=== PATIENT | male | born 1960 | race Caucasian/White ===

== ENCOUNTER 2021-01-29 11:44 | Emergency (ER) | payer SELFPAY ==
--- NOTE | 2021-01-29 11:59 | NUR ---
PT ADVISED THAT WE DO NOT GIVEN REFERRALS FOR HOSPICE. LEFT WITHOUT BEING SEEN.
== END 2021-01-29 11:59 | disposition left against medical advice (07) ==
LOC: MED 11:44
DX: Z53.21 Procedure and treatment not carried out due to patient leaving prior to being seen by health care provider (principal)

== ENCOUNTER 2021-06-11 15:50 | Emergency (ER) | payer OTHER ==
--- NOTE | 2021-06-12 00:10 | NUR ---
[place] [facility] AT BEDSIDE [id number] HOLD WRITTEN
--- NOTE | 2021-06-12 01:00 | NUR ---
AMBULATED TO BR, SANDWICH GIVEN FOLLOWING RETURN TO BED
[2021-06-12 02:22] LABS: ACETAMINOPHEN < 0.5 ug/ml (10-30); SALICYLATE < 2.8 mg/dL (2.8-20.0)
[2021-06-12 02:23] LABS: ANION GAP 11.8 (8-16); POTASSIUM 3.8 mmol/L (3.5-5.1)
[2021-06-12 02:24] LABS: ALBUMIN 3.2 g/dL (3.4-5.0); CREATININE 0.7 mg/dL (0.6-1.3); TOTAL BILIRUBIN 0.2 mg/dL (0.0-1.0)
[2021-06-12 02:26] LABS: HEMATOCRIT 34.4 % (36-52); HEMOGLOBIN 11.7 g/dL (12.0-18.0); MEAN CORPUSCULAR HEMOGLOBIN 28 pg (27-31); MEAN CORPUSCULAR HGB CONC 34 g/dL (33-37); MEAN CORPUSCULAR VOLUME 82.1 fL (80-94); PLATELET COUNT (AUTO) 187 K/uL (140-450); RED BLOOD CELL COUNT(AUTO) 4.19 MIL/uL (4.20-6.10); WHITE BLOOD COUNT (AUTO) 6.1 K/uL (4.8-10.8)
[2021-06-12 02:27] LABS: BASOPHILS % (AUTO) 0.3 % (0.0-2.0); EOSINOPHILS % (AUTO) 4.1 % (0.0-4.0); LYMPHOCYTES % (AUTO) 18.2 % (20.5-51.1); MONOCYTES % (AUTO) 7.4 % (1.7-9.3)
[2021-06-12 02:28] LABS: APPEARANCE,URINE CLEAR (CLEAR); COLOR,URINE YELLOW (YELLOW)
[2021-06-12 02:29] LABS: BILIRUBIN,URINE NEGATIVE (NEGATIVE); BLOOD, URINE NEGATIVE (NEGATIVE); LEUKOCYTE ESTERASE ,URINE NEGATIVE (NEGATIVE); NITRITE, URINE NEGATIVE (NEGATIVE); UGLUCOSE NEGATIVE (NEGATIVE)
[2021-06-12 02:32] LABS: BARBITURATE, URINE NEGATIVE ng/ml (NEG <=200); BENZODIAZEPINE, URINE NEGATIVE ng/mL (NEG <=200); CANNABINOID, URINE POSITIVE ng/mL (NEG <=50); COCAINE, URINE NEGATIVE ng/mL (NEG <=300); OPIATE, URINE NEGATIVE ng/mL (NEG <=2000); PHENCYCLIDINE SCREEN,URINE NEGATIVE ng/mL (NEG <=25)
--- NOTE | 2021-06-12 04:00 | NUR ---
RESTING IN BED WITH EYES CLOSED, RESPIRATIONS REGULAR AND UNLABORED
--- NOTE | 2021-06-12 07:31 | NUR ---
RECEIVED REPORT FROM ADIN SEGURA. ASSUMED CARE AT THIS TIME.
--- NOTE | 2021-06-12 07:42 | NUR ---
PATIENT APPEARS TO BE RESTING WITH EYES CLOSED, ALL NEEDS MET AT THIS TIME. WILL CONTINUE TO MONITOR.
--- NOTE | 2021-06-12 08:32 | NUR ---
PATIENT PROVIDED WITH BREAKFAST TRAY, SITTING UP IN BED EATING. ALL NEEDS MET AT THIS TIME.
--- NOTE | 2021-06-12 08:50 | NUR ---
CC received packet.
--- NOTE | 2021-06-12 09:11 | NUR ---
Packet faxed to: [facility]
--- NOTE | 2021-06-12 09:38 | NUR ---
Packet re-faxed to [facility] per their request. Packet was incomplete when received.
--- NOTE | 2021-06-12 11:09 | NUR ---
PATIENT APPEARS TO BE RESTING WITH EYES CLOSED, ALL NEEDS MET AT THIS TIME. WILL CONTINUE TO MONITOR.
--- NOTE | 2021-06-12 12:15 | NUR ---
PATIENT PROVIDED WITH LUNCH TRAY, SITTING UP EATING. ALL NEEDS MET AT THIS TIME.
--- NOTE | 2021-06-12 13:32 | NUR ---
SPOKE WITH YUE FROM [facility] AND GIVEN PATIENT REPORT, STATED SHE WILL CALL BACK IF THERE IS AVAILABILITY TO ACCEPT PATIENT.
[2021-06-12 13:38] LABS: RED CELL DISTRIBUTION WIDTH 14.6 % (11.6-13.7)
[2021-06-12 13:39] LABS: EOSINOPHILS # (AUTO) 0.2 K/uL (0-0.4); LYMPHOCYTES # (AUTO) 1.1 K/uL (2.0-11.5); MONOCYTES # (AUTO) 0.4 K/uL (0.8-1.0); NEUTROPHILS # (AUTO) 4.2 K/uL (1.8-7.7)
--- NOTE | 2021-06-12 13:39 | NUR ---
Packet fax to [facility]
--- NOTE | 2021-06-12 14:50 | NUR ---
[facility] BEDSIDE TO TRANSPORT PATIENT TO [facility].
[2021-06-12 14:55] VITALS: BP 161/112
--- NOTE | 2021-06-12 14:55 | NUR ---
Patient to be transferred to [facility]. Is being transferred due to HIGHER LEVEL OF CARE, PSYCHIATRY SPECIALITY. Receiving facility has accepting physician and available space. ER physician has signed transfer form. Patient or responsible democrat has agreed to transfer and signed form. Patient belongings inventoried and will be sent with patient. Copy of nursing notes, lab reports, Physicians Orders and X-rays to be sent with patient. Report called to YUE at receiving facility. [facility] ambulance service has been called for transfer. [facility] IS HERE NOW TO TRANSPORT PATIENT.
== END 2021-06-12 14:55 ==
LOC: MED 15:50
DX: F29 Unspecified psychosis not due to a substance or known physiological condition (principal); R07.9 Chest pain, unspecified; R06.02 Shortness of breath; Z20.822 Contact with and (suspected) exposure to COVID-19
CPT/HCPCS: 36415; 71045; 80053; 80305; 81003; 83880; 84484; 85025; 87426; 99285; G0480; G0482; Q0092; U0003; 93005